=== PATIENT | male | born 1960 | race Caucasian/White ===

== ENCOUNTER 2017-12-04 09:02 | Emergency (ER) | payer MEDICAID, BC ==
[2017-12-04 10:23] LABS: ADD MAN DIFF? NO
[2017-12-04 10:26] LABS: WHITE BLOOD COUNT 8.4 10^3/ul (4.8-10.8)
[2017-12-04 10:26] LABS: BASOPHILS % 0.4 % (0.0-2.0); EOSINOPHILS # 0.2 10^3/ul (0.0-0.5); EOSINOPHILS % 1.8 % (0.0-7.0); HEMOGLOBIN 14.9 g/dl (14.0-18.0); LYMPHOCYTES # 2.6 10^3/ul (0.8-2.9); LYMPHOCYTES % 30.8 % (15.0-51.0); MEAN CORPUSCULAR HEMOGLOBIN 29.3 pg (29.0-33.0); MEAN CORPUSCULAR HGB CONC 34.7 g/dl (32.0-37.0); MEAN CORPUSCULAR VOLUME 84.5 fl (82.0-101.0); MONOCYTE # 0.6 10^3/ul (0.3-0.9); MONOCYTES % 7.5 % (0.0-11.0); PLATELET COUNT 114 10^3/UL (140-415); POSITIVE DIFF @See below; RED BLOOD COUNT 5.09 10^6/ul (4.70-6.10); RED CELL DISTRIBUTION WIDTH 13.1 % (11.5-14.5)
[2017-12-04] MEDS: SOD CHLORIDE 0.9% 1,000 ML IV (10:29)
[2017-12-04] MEDS: ONDANSETRON 4 MG INJ IV ×2 (10:29→13:02)
[2017-12-04] MEDS: morphine 4 MG/ML VIAL IV (10:29)
[2017-12-04 10:48] LABS: INR 0.92; PARTIAL THROMBOPLASTIN TIME 30.3 Sec (25.0-35.0); PROTIME 12.4 Sec (11.9-14.9)
[2017-12-04 12:08] LABS: ALANINE AMINOTRANSFERASE 39 IU/L (13-69); ALBUMIN 4.6 g/dl (3.3-4.9); ALBUMIN/GLOBULIN RATIO 1.31; ALKALINE PHOSPHATASE 82 IU/L (42-121); ANION GAP 18 (8-16); ASPARTATE AMINO TRANSFERASE 28 IU/L (15-46); BILIRUBIN,INDIRECT 0.2 mg/dl (0-1.1); BILIRUBIN,TOTAL 0.2 mg/dl (0.2-1.3); BLOOD UREA NITROGEN 20 mg/dl (7-20); CALCIUM 9.3 mg/dl (8.4-10.2); CARBON DIOXIDE 23 mmol/L (21-31); CHLORIDE 103 mmol/L (97-110); CREATININE 0.72 mg/dl (0.61-1.24); GLUCOSE 109 mg/dl (70-220); POTASSIUM 4.1 mmol/L (3.5-5.1); SODIUM 140 mmol/L (135-144); TOTAL PROTEIN 8.1 g/dl (6.1-8.1)
[2017-12-04 12:20] LABS: TROPONIN-I < 0.012 ng/ml (0.00-0.12)
[2017-12-04] MEDS: KETOROLAC 30 MG INJ IV (13:02)
[2017-12-04] MEDS: MECLIZINE 12.5 MG TAB PO (13:02)
== END 2017-12-04 14:04 | disposition home or self-care (01) ==
LOC: E/R 09:02
DX: R42 Dizziness and giddiness (principal); J01.10 Acute frontal sinusitis, unspecified; R40.2252 Coma scale, best verbal response, oriented, at arrival to emergency department; R40.2142 Coma scale, eyes open, spontaneous, at arrival to emergency department; R40.2362 Coma scale, best motor response, obeys commands, at arrival to emergency department; R07.9 Chest pain, unspecified
CPT/HCPCS: 70450; 80053; 84484; 85025; 85610; 85730; 93005; 96374; 99285-25

== ENCOUNTER 2017-12-16 13:02 | Emergency (ER) | payer MEDICAID ==
[2017-12-16] MEDS: ONDANSETRON (ODT) 4 MG TAB ODT (14:59)
[2017-12-16] MEDS: KETOROLAC 30 MG INJ IM (14:59)
[2017-12-16] MEDS: MECLIZINE 12.5 MG TAB PO (14:59)
[2017-12-16] MEDS: predniSONE 20 MG TAB PO (14:59)
== END 2017-12-16 16:01 | disposition home or self-care (01) ==
LOC: FTE 13:02
DX: R51 Headache (principal); R42 Dizziness and giddiness
CPT/HCPCS: 93005; 96372; 99284-25